=== PATIENT | female | born 1930 | race Caucasian/White ===

== ENCOUNTER 2018-08-06 07:51 | Outpatient (CLI) | payer OTHER ==
[2018-08-06] MEDS ORDERED: NORVASC2.5 M1 (15:11)
[2018-08-06] MEDS ORDERED: TENORMIN25 MG (15:12)
[2018-08-06] MEDS ORDERED: OMEPRAZOLE20 M1 (15:12)
[2018-08-06] MEDS ORDERED: LISINOPRIL-HCT1 EAC2 (15:12)
== END 2018-08-06 08:03 | disposition home or self-care (01) ==
LOC: RAD 07:51
DX: D12.2 Benign neoplasm of ascending colon (principal); C18.2 Malignant neoplasm of ascending colon; Z86.010 Personal history of colon polyps; K92.1 Melena

== ENCOUNTER 2018-08-06 08:47 | Outpatient (CLI) | payer OTHER ==
[2018-08-06] MEDS ORDERED: NORVASC2.5 M1 (15:11)
[2018-08-06] MEDS ORDERED: OMEPRAZOLE20 M1 (15:12)
[2018-08-06] MEDS ORDERED: LISINOPRIL-HCT1 EAC2 (15:12)
[2018-08-06] MEDS ORDERED: TENORMIN25 MG (15:12)
== END 2018-08-06 10:56 | disposition home or self-care (01) ==
LOC: LAB 08:47
DX: D12.2 Benign neoplasm of ascending colon (principal); C18.2 Malignant neoplasm of ascending colon; Z86.010 Personal history of colon polyps; K92.1 Melena

== ENCOUNTER 2018-08-06 15:02 | Inpatient (IN) | payer OTHER ==
[~2018-08-06] VITALS: Ht 149.9 cm; Wt 63.5 kg
[2018-08-06] MEDS ORDERED: NORVASC2.5 M1 (15:11)
[2018-08-06] MEDS ORDERED: OMEPRAZOLE20 M1 (15:12)
[2018-08-06] MEDS ORDERED: LISINOPRIL-HCT1 EAC2 (15:12)
[2018-08-06] MEDS ORDERED: TENORMIN25 MG (15:12)
--- NOTE | 2018-08-06 15:15 | NUR ---
SE RECIBE PTE LA CUAL LLEGA A ER AY QUE PRESENTA RESULTADO DE HEMOGLOBINA [address] MARTINEZ ENVIA A LA PTE PARA SER ATENDIDA YA QUE TENIA CIRUGIA PROGAMADA PARA REMCION DE QUIESTE EN GOVIND 01/13/19.
--- NOTE | 2018-08-06 17:38 | NUR ---
SE EDCUA A PTE SOBRE TX MEDICO ESTA REFIERE ENTENDER. SE MATHEUS TUBOS PILOTOS A PTE Y SE COLOCA H/L EL CUAL SE ENCUENTRA PATENTE COLE DE EDEMA Y ENROJECIMIENTO. PTE SE CONTINUA MONITORIANDO POR CAMBIOS.
== END 2018-08-14 14:00 | disposition home or self-care (01) | DRG 812 ==
LOC: ER 15:02 → MEDJ 22:20 → SEC-K 22:20 → MEDJ 08-07 11:20
PROVIDERS: ADMIT Internal Medicine
PROC: B246ZZZ Ultrasonography of Right and Left Heart (ICD-10-PCS; 2018-08-06)
PROC: 30233N1 Transfusion of Nonautologous Red Blood Cells into Peripheral Vein, Percutaneous Approach (ICD-10-PCS; principal; 2018-08-11)
PROC: B54CZZZ Ultrasonography of Left Lower Extremity Veins (ICD-10-PCS; 2018-08-13)
DX: D50.0 Iron deficiency anemia secondary to blood loss (chronic) (principal); I10 Essential (primary) hypertension; Z85.3 Personal history of malignant neoplasm of breast; E03.8 Other specified hypothyroidism; J44.9 Chronic obstructive pulmonary disease, unspecified; I87.2 Venous insufficiency (chronic) (peripheral)

== ENCOUNTER 2018-08-18 10:35 | Inpatient (IN) | payer OTHER ==
[~2018-08-18] VITALS: Ht 149.9 cm; Wt 63.5 kg
[~2018-08-18 10:35] MED LIST: LISINOPRIL-HCT1 EAC2; NORVASC2.5 M1; OMEPRAZOLE20 M1; TENORMIN25 MG
[2018-08-18] MEDS ORDERED: SYNTHROID75 MCG PO (12:35)
== END 2018-08-22 18:12 | disposition home or self-care (01) | DRG 330 ==
LOC: O/R 08-19 05:25 → SURG 08-19 05:25 → SURH 08-19 09:14 → SURG 08-19 11:01
PROVIDERS: ADMIT Colon & Rectal Surgery
PROC: 07BB4ZZ Excision of Mesenteric Lymphatic, Percutaneous Endoscopic Approach (ICD-10-PCS; 2018-08-19)
PROC: 0DBU4ZZ Excision of Omentum, Percutaneous Endoscopic Approach (ICD-10-PCS; 2018-08-19)
PROC: 0DBK4ZZ Excision of Ascending Colon, Percutaneous Endoscopic Approach (ICD-10-PCS; principal; 2018-08-19 10:30)
DX: C18.2 Malignant neoplasm of ascending colon (principal); J98.11 Atelectasis; R59.0 Localized enlarged lymph nodes; I10 Essential (primary) hypertension; E83.42 Hypomagnesemia; E03.8 Other specified hypothyroidism; J44.9 Chronic obstructive pulmonary disease, unspecified; Z85.3 Personal history of malignant neoplasm of breast; Z86.010 Personal history of colon polyps

== ENCOUNTER 2019-10-23 05:10 | Day surgery (SDC) | payer OTHER ==
[~2019-10-23 05:10] MED LIST changes: +SYNTHROID75 MCG PO
== END 2019-10-23 10:00 | disposition home or self-care (01) ==
LOC: AMB-ENDOS 05:10 → ADM 14:30 → AMB-ENDOS 14:30
PROVIDERS: ATTEND Colon & Rectal Surgery
DX: C18.2 Malignant neoplasm of ascending colon (principal); K64.1 Second degree hemorrhoids